=== PATIENT | male | born 1995 | race Caucasian/White ===

== ENCOUNTER 2017-12-21 12:46 | Emergency (ER) | payer SELFPAY ==
[~2017-12-21] VITALS: Ht 167.6 cm; Wt 102.2 kg
[~2017-12-21 12:46] MED LIST: NOHOMEMEDS
[2017-12-21 14:33] LABS: APPEARANCE CLEAR ((CLEAR)); BILIRUBIN NEGATIVE; BLOOD SMALL; COLOR AMBER ((YELLOW)); GLUCOSE (STRIP) NEGATIVE; KETONES 5; LEUKOCYTES NEGATIVE; NITRITE NEGATIVE; PROTEIN (STRIP) 30; SPECIFIC GRAVITY 1.021 (1.000-1.030)
[2017-12-21 14:38] LABS: CHLORIDE 102 mEq/L (99-109); SODIUM 135 mEq/L (136-147)
[2017-12-21 14:38] LABS: BACTERIA RARE /HPF; EPITHELIAL CELLS NONE SEEN /HPF; MUCUS 1+ /LPF; RED BLOOD CELLS 0-5 /HPF (0-5); UCUL ADDED? NO; WHITE BLOOD CELLS 0-5 /HPF (0-5)
[2017-12-21 14:39] LABS: GLUCOSE 127 mg/dL (70-99)
[2017-12-21 14:43] LABS: CREATININE 0.9 mg/dL (0.6-1.3); GFR ESTIMATE (CALCULATED) > 59 mL/min/ (58.99-99999)
[2017-12-21 14:44] LABS: UREA NITROGEN (BUN) 9 mg/dL (9-23)
[2017-12-21 15:33] LABS: BASOPHIL (%) 0.1 % (0-1); EOSINOPHIL (%) 0.2 % (0-5); HEMATOCRIT 47.6 % (38.0-50.0); HEMOGLOBIN 16.2 G/DL (12.5-16.6); IMMATURE GRANULOCYTE (%) 0.6 % (0.0-0.7); LYMPHOCYTE (%) 9.4 % (15-42); LYMPHOCYTE COUNT 1.5 K/uL (1.0-2.8); MCH 28.2 PG (29.0-34.0); MCV 82.8 FL (86-99); MONOCYTE COUNT 1.3 K/uL (0-0.8); NEUTROPHIL (%) 81.7 % (45-76); NEUTROPHIL COUNT 13.1 K/uL (1.8-6.4); PLATELET COUNT 204 K/uL (156-360); RBC DIS.WIDTH-CV 12.6 % (11.8-14.6); RBC DIS.WIDTH-SD 37.9 % (39-53); RED BLOOD COUNT 5.75 M/uL (4.00-5.50); WHITE BLOOD COUNT 16.1 K/uL (4.1-10.2)
[2017-12-21 21:40] VITALS: BP 113/58
[2017-12-22] VITALS (7 sets, daily range): BP systolic 116–154; BP diastolic 56–79
[2017-12-22 07:23] LABS: BASOPHIL (%) 0.1 % (0-1); EOSINOPHIL (%) 0 % (0-5); HEMATOCRIT 39.8 % (38.0-50.0); IMMATURE GRANULOCYTE (%) 0.4 % (0.0-0.7); LYMPHOCYTE (%) 7.4 % (15-42); MCH 28.3 PG (29.0-34.0); MCHC 33.4 G/DL (30.0-36.0); MCV 84.7 FL (86-99); MONOCYTE COUNT 1.3 K/uL (0-0.8); NEUTROPHIL (%) 83.1 % (45-76); NEUTROPHIL COUNT 11.6 K/uL (1.8-6.4); PLATELET COUNT 166 K/uL (156-360); RBC DIS.WIDTH-CV 12.6 % (11.8-14.6); RBC DIS.WIDTH-SD 38.8 % (39-53); WHITE BLOOD COUNT 13.9 K/uL (4.1-10.2)
[2017-12-22 07:27] LABS: CHLORIDE 103 MEQ/L (99-109); CREATININE 0.9 MG/DL (0.6-1.3); GFR ESTIMATE (CALCULATED) > 59 mL/min/ (58.99-99999); GLUCOSE 117 mg/dL (70-99); POTASSIUM 4.1 MEQ/L (3.7-5.4); SODIUM 138 MEQ/L (136-147); UREA NITROGEN (BUN) 9 mg/dL (9-23)
[2017-12-22 07:28] LABS: HEMOGLOBIN 13.3 G/DL (12.5-16.6)
[2017-12-23 03:09] VITALS: BP 134/68
[2017-12-23 06:27] LABS: BASOPHIL (%) 0.2 % (0-1); EOSINOPHIL (%) 0.2 % (0-5); HEMATOCRIT 41.7 % (38.0-50.0); HEMOGLOBIN 13.9 G/DL (12.5-16.6); IMMATURE GRANULOCYTE (%) 0.5 % (0.0-0.7); LYMPHOCYTE (%) 11.6 % (15-42); LYMPHOCYTE COUNT 1.1 K/uL (1.0-2.8); MCH 28.1 PG (29.0-34.0); MCHC 33.3 G/DL (30.0-36.0); MCV 84.4 FL (86-99); MONOCYTE (%) 9.4 % (3-12); MONOCYTE COUNT 0.9 K/uL (0-0.8); NEUTROPHIL (%) 78.1 % (45-76); NEUTROPHIL COUNT 7.7 K/uL (1.8-6.4); PLATELET COUNT 162 K/uL (156-360); RBC DIS.WIDTH-CV 12.8 % (11.8-14.6); RBC DIS.WIDTH-SD 39.4 % (39-53); RED BLOOD COUNT 4.94 M/uL (4.00-5.50); WHITE BLOOD COUNT 9.9 K/uL (4.1-10.2)
[2017-12-23 06:52] LABS: CHLORIDE 103 MEQ/L (99-109); CREATININE 0.8 MG/DL (0.6-1.3); GFR ESTIMATE (CALCULATED) > 59 mL/min/ (58.99-99999); GLUCOSE 94 mg/dL (70-99); POTASSIUM 3.7 MEQ/L (3.7-5.4); SODIUM 136 MEQ/L (136-147); UREA NITROGEN (BUN) 7 mg/dL (9-23)
[2017-12-23 07:41] VITALS: BP 151/81
[2017-12-23 15:49] VITALS: BP 139/88
[2017-12-24 00:16] VITALS: BP 148/62
[2017-12-24 06:45] LABS: BASOPHIL (%) 0.4 % (0-1); EOSINOPHIL (%) 1.8 % (0-5); EOSINOPHIL COUNT 0.1 K/uL (0-0.3); HEMATOCRIT 41.6 % (38.0-50.0); HEMOGLOBIN 14.1 G/DL (12.5-16.6); IMMATURE GRANULOCYTE (%) 0.4 % (0.0-0.7); LYMPHOCYTE (%) 11.6 % (15-42); LYMPHOCYTE COUNT 0.9 K/uL (1.0-2.8); MCH 28.4 PG (29.0-34.0); MCHC 33.9 G/DL (30.0-36.0); MCV 83.9 FL (86-99); MONOCYTE (%) 12.2 % (3-12); NEUTROPHIL (%) 73.6 % (45-76); NEUTROPHIL COUNT 5.9 K/uL (1.8-6.4); PLATELET COUNT 198 K/uL (156-360); RBC DIS.WIDTH-CV 12.8 % (11.8-14.6); RBC DIS.WIDTH-SD 39.5 % (39-53); RED BLOOD COUNT 4.96 M/uL (4.00-5.50)
[2017-12-24 07:44] VITALS: BP 136/76
[2017-12-24] MEDS ORDERED: HYDROCODON-ACE1 EAC9 PO (08:47)
[2017-12-24] MEDS ORDERED: FLAGYL500 MG PO (08:51)
[2017-12-24] MEDS ORDERED: BACTRIM,SEPT1 TABLET PO (08:51)
[2017-12-24 15:48] VITALS: BP 160/89
== END 2017-12-24 17:39 | disposition home or self-care (01) ==
LOC: EME 12:46 → 2EAST 16:57 → 2SOUTH 16:57 → ENRESERV 16:59 → 2EAST 21:13
PROVIDERS: Emergency Medicine; Surgery
PROC: 0DTJ4ZZ Resection of Appendix, Percutaneous Endoscopic Approach (ICD-10-PCS; principal; 2017-12-21)
DX: K35.3 Acute appendicitis with localized peritonitis (principal); E66.9 Obesity, unspecified; R00.0 Tachycardia, unspecified; R09.02 Hypoxemia; Z88.0 Allergy status to penicillin; Z68.36 Body mass index [BMI] 36.0-36.9, adult
CPT/HCPCS: 74177; 80048; 81003; 82948; 85025; 87205; 88304; 93005; 94799; 99281; 99285; G0378; J0131; J0330; J1100; J1170; J2250; J2405; J2710; J3010; J7030; J7040; J7643; S0020; S0074

== ENCOUNTER 2018-01-08 11:42 | Emergency (ER) | payer SELFPAY ==
[~2018-01-08] VITALS: Ht 167.6 cm; Wt 101.5 kg
[~2018-01-08 11:42] MED LIST changes: +BACTRIM,SEPT1 TABLET PO; +FLAGYL500 MG PO; +HYDROCODON-ACE1 EAC9 PO
[2018-01-08 11:57] VITALS: BP 153/94
== END 2018-01-08 12:31 | disposition home or self-care (01) ==
LOC: EME 11:42
DX: Z48.02 Encounter for removal of sutures (principal); Z98.890 Other specified postprocedural states
CPT/HCPCS: 99281; 99284